=== PATIENT | female | born 1930 | race Caucasian/White ===

== ENCOUNTER 2020-09-19 18:34 | Inpatient (IN) | payer MEDICARE, BC ==
[~2020-09-19] VITALS: Ht 165.1 cm; Wt 118.0 kg
[~2020-09-19 18:34] MED LIST: ADULT LOW DOSE81 MG PO; COLACE 100MG C100 MG PO; HYDROCHLOROTH12.5 M1 PO; JANTOVEN2 MG PO; JANTOVEN5 MG PO; LASIX40 MG PO; LIPITOR TAB 1010 MG PO; LISINOPRIL10 MG PO; LISINOPRIL30 MG PO; NEURONTIN600 MG PO; NORVASC 5 MG TAB5 MG PO; OMNICEF 300 MG300 MG PO; PROAIR HFA8.5 GM INH; TAMBOCOR 100 M100 MG PO; VOLTAREN100 GM TP
[2020-09-19 19:36] LABS: RED BLOOD COUNT 4.39 M/UL (4.00-5.10); WHITE BLOOD COUNT 11.5 K/UL (4.5-11.0)
[2020-09-19] MEDS ORDERED: COZAAR 25MG TAB25 MG PO (23:59)
[2020-09-20] MEDS ORDERED: DILT-XR120 MG PO (00:01)
[2020-09-20] MEDS ORDERED: ETODOLAC ER400 MG PO (00:02)
[2020-09-20] MEDS ORDERED: TOPROL XL25 MG PO (00:04)
[2020-09-21 02:55] LABS: HEMOGLOBIN 11.6 gm/dl (12.3-15.3); WHITE BLOOD COUNT 12.2 K/UL (4.5-11.0)
[2020-09-21 02:59] LABS: RED BLOOD COUNT 3.94 M/UL (4.00-5.10)
--- NOTE | 2020-09-21 09:07 | NUR ---
PATIENT NOTED WITH CONFUSION TODAY, A & O X SELF AND LOCATION. PATIENT VOICES THAT NO ONE HAS DONE ANYTHING FOR HER FOOT/LEG SINCE SHE HAS BEEN HERE AT THIS HOSPITAL, PAIN MEDICATION NOTED AND GIVEN PER MD ORDER. ORTHO IS ON CASE.
--- NOTE | 2020-09-21 09:57 | NUR ---
PATIENT SON STATES THAT HE HAS CONCERN WTIH PATIENT AND ANKLE, THAT ORTHO HAS NOT SEEN HIS MOTHER AND THAT HE COULDN'T UNSTAND WHY SHE WAS STILL HERE, BECAUSE ORIGNALLY THIS IS NOT WHY SHE CAME. EXPLAINED TO SON THAT WHILE IN ER SHE BEGAN TO GET AFIB AND THAT IS THE REASON TO WHY THEY ADMITTED HER AND PLACED HER ON OUR UNIT. SON VERBILZES UNDERSTANDING, WAS JUST CONCERED ABOUT TREATMENT TO THE FOOT/ANKLE. ORTHO AWARE OF CONCERN, WILL MAKE ROUNDS TODAY WHEN AVAILABLE, SON AWARE.
[2020-09-22 03:26] LABS: HEMOGLOBIN 10.6 gm/dl (12.3-15.3); RED BLOOD COUNT 3.63 M/UL (4.00-5.10); WHITE BLOOD COUNT 11.3 K/UL (4.5-11.0)
[2020-09-23 03:05] LABS: RED BLOOD COUNT 3.74 M/UL (4.00-5.10); WHITE BLOOD COUNT 9.7 K/UL (4.5-11.0)
[2020-09-24 05:55] LABS: HEMOGLOBIN 10.9 gm/dl (12.3-15.3); RED BLOOD COUNT 3.74 M/UL (4.00-5.10); WHITE BLOOD COUNT 9.2 K/UL (4.5-11.0)
[2020-09-25 04:09] LABS: HEMOGLOBIN 10.6 gm/dl (12.3-15.3); RED BLOOD COUNT 3.67 M/UL (4.00-5.10); WHITE BLOOD COUNT 9.2 K/UL (4.5-11.0)
[2020-09-26 05:50] LABS: HEMOGLOBIN 11.4 gm/dl (12.3-15.3); RED BLOOD COUNT 3.95 M/UL (4.00-5.10)
[2020-09-26 05:52] LABS: WHITE BLOOD COUNT 12.7 K/UL (4.5-11.0)
[2020-09-27 05:50] LABS: RED BLOOD COUNT 4.01 M/UL (4.00-5.10); WHITE BLOOD COUNT 12.2 K/UL (4.5-11.0)
[2020-09-28 05:16] LABS: HEMOGLOBIN 11.5 gm/dl (12.3-15.3); RED BLOOD COUNT 3.96 M/UL (4.00-5.10); WHITE BLOOD COUNT 11.8 K/UL (4.5-11.0)
[2020-10-03] MEDS ORDERED: NEURONTIN600 MG PO (10:34)
== END 2020-10-03 17:00 | DRG 309 ==
LOC: ER1 18:34 → CDU 09-20 00:10 → PROG CARE 09-20 18:19 → MED SURG 4 09-22 18:49 → PROG CARE 09-22 18:49 → MED SURG 4 09-25 19:16
PROVIDERS: Emergency Medicine; Internal Medicine; ADMIT Internal Medicine
DX: I48.20 Chronic atrial fibrillation, unspecified (principal); G45.9 Transient cerebral ischemic attack, unspecified; I13.0 Hypertensive heart and chronic kidney disease with heart failure and stage 1 through stage 4 chronic kidney disease, or unspecified chronic kidney disease; I50.32 Chronic diastolic (congestive) heart failure; N39.0 Urinary tract infection, site not specified; Z20.828 Contact with and (suspected) exposure to other viral communicable diseases; B96.20 Unspecified Escherichia coli [E. coli] as the cause of diseases classified elsewhere; S93.401A Sprain of unspecified ligament of right ankle, initial encounter; J44.9 Chronic obstructive pulmonary disease, unspecified; E66.01 Morbid (severe) obesity due to excess calories; M25.461 Effusion, right knee; N18.30 Chronic kidney disease, stage 3 unspecified; G47.33 Obstructive sleep apnea (adult) (pediatric); W06.XXXA Fall from bed, initial encounter; Z86.718 Personal history of other venous thrombosis and embolism; Z98.49 Cataract extraction status, unspecified eye; Z82.49 Family history of ischemic heart disease and other diseases of the circulatory system; Z82.3 Family history of stroke; Y93.9 Activity, unspecified; Y92.003 Bedroom of unspecified non-institutional (private) residence as the place of occurrence of the external cause; Z68.38 Body mass index [BMI] 38.0-38.9, adult
CPT/HCPCS: 36415; 36600; 70450; 71045; 73502; 73560; 73590; 73610; 73630; 73700; 80048; 80053; 81001; 82140; 82550; 82553; 82803; 83605; 83690; 83735; 84484; 84550; 85025; 85610; 85730; 87040; 87070; 87077; 87086; 87186; 87205; 87635; 89051; 89060; 93005; 93971; 94760; 96374; 97110-GP-CQ; 97162; 97530-GP-CQ; 99285; A6212; G0378; J0696; J7030; J7050; U0002